=== PATIENT | female | born 1990 | race Two or more races ===

== ENCOUNTER 2022-04-19 16:40 | Emergency (ER) | payer OTHER ==
[2022-04-19 16:48] VITALS: RESP 18; TEMP 97; BMI 32.3
[2022-04-19 21:09] VITALS: BP 115/66; PULSE 104
[2022-04-19 21:20] LABS: PH,URINE 6.5 (5.0-8.0); URINE APPEARANCE CLEAR; URINE BILIRUBIN NEGATIVE (NEGATIVE); URINE COLOR YELLOW; URINE GLUCOSE (UA) NEGATIVE (NEGATIVE); URINE KETONE NEGATIVE (NEGATIVE); URINE LEUK ESTERASE NEGATIVE (NEGATIVE); URINE NITRITE NEGATIVE (NEGATIVE); URINE PROTEIN NEGATIVE (NEGATIVE); URINE UROBILINOGEN 0.2 mg/dL (0.2-1.0)
== END 2022-04-19 22:42 | disposition home or self-care (01) ==
LOC: JER 16:40
DX: O26.892 Other specified pregnancy related conditions, second trimester (principal); R10.2 Pelvic and perineal pain; Z3A.19 19 weeks gestation of pregnancy
CPT/HCPCS: 76815; 76817-TC; 81003; 87086; 99284-25

== ENCOUNTER 2022-09-10 05:50 | Inpatient (IN) | payer OTHER ==
[2022-09-10] MEDS ORDERED: ELECTROLYTE-148 SOLN 500 ML IV ONE ×2 (06:00→06:30)
[2022-09-10] MEDS ORDERED: CITRIC ACID/SODIUM CITRATE 30 ML UNIT-DOSE CUP PO ONE (06:00)
[2022-09-10 06:33] VITALS: BMI 39.1
[2022-09-10] MEDS ORDERED: morphine SULFATE (PF) 1 MG/2 ML SYRINGE ONE (08:07)
[2022-09-10] MEDS ORDERED: PHENYLEPHRINE HCL 10 MG/1 ML SINGLE DOSE VIAL ONE (08:07)
[2022-09-10] MEDS ORDERED: ACETAMINOPHEN 325 MG TABLET (FP) PO PRN ×2 (08:17→09:34)
[2022-09-10] MEDS ORDERED: BENZOCAINE 20% 57 GM BOTTLE TP PRN (08:17)
[2022-09-10] MEDS ORDERED: IBUPROFEN 800 MG/8 ML IJ IVPB PRN (08:17)
[2022-09-10] MEDS ORDERED: METHYLERGONOVINE MALEATE 0.2 MG/1 ML AMP IM PRN (08:17)
[2022-09-10] MEDS ORDERED: ELECTROLYTE-148 SOLN 1,000 ML IV SCH (08:30)
[2022-09-10] MEDS ORDERED: MIDAZOLAM HCL 2 MG/2 ML SINGLE DOSE VIAL ONE ×2 (08:49→09:04)
[2022-09-10] MEDS ORDERED: LIGASURE IMPACT TP ONE (08:49)
[2022-09-10] MEDS ORDERED: FENTANYL CITRATE/PF 50 MCG/ML VIAL ONE ×2 (08:53→08:59)
[2022-09-10] MEDS ORDERED: ceFAZolin SODIUM 1 GM VIAL ONE ×2 (08:53)
[2022-09-10] MEDS: OXYTOCIN 20 UNITS in 0.9% NS 20 UNIT/1,000 ML INFUS.BAG IV SCH ×2 (09:25→14:59)
[2022-09-10 09:27] LABS: CORD HCO3 24.1 mmHg (20-29); CORD pH 7.337 (7.14-7.44)
[2022-09-10 09:32] LABS: CORD BASE EXCESS -0.7 mmol/L (0-2); CORD HCO3 28.9 mmHg (20-29); CORD PCO2 69.8 mmHg (30-78); CORD pH 7.235 (7.14-7.44)
[2022-09-10] MEDS ORDERED: ONDANSETRON 4 MG/2 ML VIAL IVPUSH PRN (09:34)
[2022-09-10] MEDS ORDERED: IBUPROFEN 600 MG TABLET (FP) PO PRN (09:34)
[2022-09-10] MEDS: PRENATAL VITAMINS W/ FOLIC ACID TABLET (FP) PO SCH (10:36)
[2022-09-10] MEDS ORDERED: IBUPROFEN 800 MG/8 ML IJ IVPB ONE (10:45)
[2022-09-10] MEDS: FERROUS SO4 325 MG TABLET (FP) PO SCH (17:40)
[2022-09-10] MEDS: CEFAZOLIN SODIUM 2 GM in DEXTROSE 5%-WATER 100 ML IVPB SCH (19:07)
[2022-09-10] MEDS ORDERED: oxyCODONE HCL 5 MG TABLET PO PRN ×2 (20:17)
[2022-09-10] MEDS: SIMETHICONE 80 MG TAB.CHEW (FP) PO PRN (22:26)
[2022-09-10] MEDS: IBUPROFEN 600 MG TABLET (FP) PO PRN (22:26)
[2022-09-11] MEDS: CEFAZOLIN SODIUM 2 GM in DEXTROSE 5%-WATER 100 ML IVPB SCH (02:18)
[2022-09-11] MEDS: IBUPROFEN 600 MG TABLET (FP) PO PRN ×4 (04:17→21:11)
[2022-09-11] MEDS: SIMETHICONE 80 MG TAB.CHEW (FP) PO PRN ×3 (04:17→21:09)
[2022-09-11] MEDS ORDERED: BISACODYL 10 MG SUPP.RECT RC PRN (08:17)
[2022-09-11 08:41] LABS: BASO % 0.2 % (0-2.0); EOS % 0.6 % (0-4.5); HEMATOCRIT 30.7 % (32.4-45.2); HEMOGLOBIN 10.2 GM/dL (10.7-15.3); LYMPH % 9.1 % (8-40); MCH 27.8 pg (25.7-33.7); MCHC 33.3 g/dl (32.0-36.0); MEAN CELL VOLUME 83.2 fl (80-96); MEAN PLT VOLUME 7.6 fl (7.5-11.1); MONO % 5.8 % (3.8-10.2); NEUT % 84.3 % (42.8-82.8); PLATELET COUNT 407 10^3/uL (134-434); RBC 3.69 M/mm3 (3.60-5.2); RDW 16.1 % (11.6-15.6); WHITE BLOOD COUNT 12.8 K/mm3 (4.0-10.0)
[2022-09-11] MEDS: FERROUS SO4 325 MG TABLET (FP) PO SCH ×2 (09:50→17:03)
[2022-09-11] MEDS: PRENATAL VITAMINS W/ FOLIC ACID TABLET (FP) PO SCH (09:50)
[2022-09-12] MEDS: SIMETHICONE 80 MG TAB.CHEW (FP) PO PRN ×2 (03:17→21:38)
[2022-09-12] MEDS: IBUPROFEN 600 MG TABLET (FP) PO PRN ×5 (03:17→21:38)
[2022-09-12] MEDS: FERROUS SO4 325 MG TABLET (FP) PO SCH ×2 (08:24→17:02)
[2022-09-12] MEDS: PRENATAL VITAMINS W/ FOLIC ACID TABLET (FP) PO SCH (10:23)
[2022-09-13] MEDS: IBUPROFEN 600 MG TABLET (FP) PO PRN ×3 (02:23→10:11)
[2022-09-13] MEDS: SIMETHICONE 80 MG TAB.CHEW (FP) PO PRN (02:24)
[2022-09-13 09:12] LABS: BASO % 0.3 % (0-2.0); EOS % 3.9 % (0-4.5); HEMATOCRIT 29.6 % (32.4-45.2); HEMOGLOBIN 9.9 GM/dL (10.7-15.3); MCH 27.7 pg (25.7-33.7); MCHC 33.4 g/dl (32.0-36.0); MEAN PLT VOLUME 7.4 fl (7.5-11.1); NEUT % 75.8 % (42.8-82.8); PLATELET COUNT 449 10^3/uL (134-434); RBC 3.56 M/mm3 (3.60-5.2); RDW 16.1 % (11.6-15.6)
[2022-09-13] MEDS: FERROUS SO4 325 MG TABLET (FP) PO SCH (10:11)
[2022-09-13] MEDS: PRENATAL VITAMINS W/ FOLIC ACID TABLET (FP) PO SCH (10:11)
[2022-09-13 12:43] VITALS: BP 140/75; PULSE 112; RESP 16; TEMP 98.7
== END 2022-09-13 01:39 | disposition home or self-care (01) | DRG 540 ==
LOC: JLDR 05:50 → J3W 11:15
PROVIDERS: ADMIT Obstetrics & Gynecology; ATTEND Obstetrics & Gynecology
PROC: 10D00Z1 Extraction of Products of Conception, Low, Open Approach (ICD-10-PCS; principal; 2022-09-10)
PROC: 0UB90ZZ Excision of Uterus, Open Approach (ICD-10-PCS; 2022-09-10)
DX: O36.63X0 Maternal care for excessive fetal growth, third trimester, not applicable or unspecified (principal); O99.214 Obesity complicating childbirth; O34.13 Maternal care for benign tumor of corpus uteri, third trimester; Z3A.39 39 weeks gestation of pregnancy; Z37.0 Single live birth
CPT/HCPCS: 36415; 36600; 80048; 82803; 85025; 85610; 85730; 86780; 86850; 86900; 86901; 88305-TC; 88307-TC; 94010; C9803-CS; U0003; U0005